=== PATIENT | female | born 1935 | race Caucasian/White ===

== ENCOUNTER 2016-11-09 11:15 | Day surgery (SDC) | payer MEDICARE ==
[~2016-11-09] VITALS: Ht 160 cm; Wt 77.3 kg
[~2016-11-09 11:15] MED LIST: COUM2.5T PO; DIGO.25 PO; DYAZ PO; METO25 PO; PRAV20 PO; SYMB160A INH; VENTAER INH; WARF2.5T40 PO
[2016-11-09] MEDS ORDERED: ceFAZolin 2 GM PREMIX 50 ML IV SCH (11:45)
[2016-11-09] MEDS ORDERED: CHLORHEXIDINE GLUCONATE 2 % 1 PACK (2 CLOTHS) TOP SCH (11:45)
[2016-11-09] MEDS ORDERED: SODIUM CHLORID 0.9% 500 ML IV SCH (11:45)
[2016-11-09] MEDS ORDERED: NO Heparin, Lovenox, Coumadin at least 12 hours prior to procedure. XX PRN (11:45)
[2016-11-09] MEDS ORDERED: LACTATED RINGER'S 1000 ML IV SCH (11:45)
[2016-11-09] MEDS ORDERED: INSULIN HUMAN REGULAR 1,000 UNITS/10 ML VIAL SQ PRN (11:45)
[2016-11-09] MEDS ORDERED: METOPROLOL TARTRATE 25 MG TAB PO PRN (11:45)
[2016-11-09] MEDS ORDERED: POVIDONE IODINE 5% (ANTISEPSIS KIT) 4 APPLICATIONS EACH NARE SCH (11:45)
[2016-11-09] MEDS ORDERED: Hold AM Insulin & AM Hypoglycemic medications in diabetic patients XX PRN (11:45)
[2016-11-09 11:51] VITALS: BP 129/73; PULSE 105; RESP 18; O2SAT 94
[2016-11-09] MEDS ORDERED: CHOL1CHW5 CHEW (12:06)
[2016-11-09] MEDS ORDERED: WARF-18 PO (12:06)
[2016-11-09] MEDS ORDERED: inhaler INH (12:06)
[2016-11-09] MEDS ORDERED: CARV3.12 PO (12:06)
[2016-11-09] MEDS ORDERED: GEMF600T PO (12:06)
[2016-11-09] MEDS ORDERED: POTA-243 PO (12:06)
[2016-11-09] MEDS ORDERED: VITA10007 PO (12:06)
[2016-11-09] MEDS ORDERED: PRAV20TA2 PO (12:06)
[2016-11-09] MEDS ORDERED: TEMA15CA PO (12:06)
[2016-11-09] MEDS ORDERED: LISI10TA3 PO (12:06)
[2016-11-09] MEDS ORDERED: FURO20TA PO (12:06)
[2016-11-09] MEDS ORDERED: VANCOMYCIN HCL 1000 MG VIAL ONE (12:07)
[2016-11-09 12:13] LABS: AUTOMATED NEUTROPHIL # 5.4 TH/MM3 (1.8-7.7); BASOPHIL % 0.5 % (0.0-2.0); EOSINOPHIL # 0.1 TH/MM3 (0-0.4); EOSINOPHIL % 1.5 % (0.0-4.0); HEMATOCRIT 43.1 % (35.0-46.0); HEMO FLAGS DIFF FINAL; LYMPH % 15.5 % (9.0-44.0); LYMPHOCYTE # 1.1 TH/MM3 (1.0-4.8); MEAN CELL VOLUME 87.1 FL (80.0-100.0); MEAN CORPUSCULAR HEMOGLOBIN 29.2 PG (27.0-34.0); MEAN CORPUSCULAR HGB CONC 33.5 % (32.0-36.0); MONO % 5.2 % (0.0-8.0); NEUT % 77.3 % (16.0-70.0); PLATELET COUNT 169 TH/MM3 (150-450); RED BLOOD COUNT 4.94 MIL/MM3 (4.00-5.30); RED CELL DISTRIBUTION WIDTH 13.4 % (11.6-17.2)
[2016-11-09 12:20] LABS: APTT (PATIENT) 38.9 SEC (24.3-30.1); INTERNATIONAL NORMALIZED RATIO 1.7 RATIO; PROTHROMBIN TIME - PATIENT 19.8 SEC (9.8-11.6)
[2016-11-09 12:31] LABS: BICARBONATE 29.6 MEQ/L (21.0-32.0); POTASSIUM 4.5 MEQ/L (3.5-5.1)
[2016-11-09] MEDS ORDERED: MIDAZOLAM HCL 2 MG/2 ML VIAL ONE (15:07)
[2016-11-09] MEDS ORDERED: RESP: ALBUTEROL 2.5 MG/3 ML NEB (SCH) ONE (15:07)
[2016-11-09] MEDS ORDERED: fentaNYL CITRATE 250 MCG/5 ML AMP ONE (15:07)
[2016-11-09] MEDS ORDERED: ISOPROTERENOL HCL 1 MG/5 ML AMP ONE (15:44)
[2016-11-09] MEDS ORDERED: VANCOMYCIN 500 MG VIAL ONE (15:50)
[2016-11-09] MEDS ORDERED: LIDOCAINE HCL 2% 50 ML VIAL ONE (15:51)
[2016-11-09] MEDS ORDERED: PROPOFOL 200 MG/20 ML AMP IV ONE (16:27)
[2016-11-09 19:00] VITALS: BP 120/69; PULSE 79; RESP 16; O2SAT 95
[2016-11-09] MEDS ORDERED: TEMAZEPAM 15 MG CAP PO PRN (21:15)
[2016-11-09] MEDS ORDERED: PRAVASTATIN SOD 20 MG TAB PO SCH (22:00)
[2016-11-09] MEDS: CARVEDILOL 3.125 MG TAB PO SCH (22:10)
[2016-11-09 23:00] VITALS: PULSE 80
[2016-11-10] VITALS (7 sets, daily range): BP systolic 124–136; BP diastolic 73–74; PULSE 62–88; RESP 16–18; TEMP 98.6; O2SAT 94–95
[2016-11-10] MEDS ORDERED: POTASSIUM CHLORIDE 10 MEQ CONTROLLED RELEASE TAB PO SCH (09:00)
[2016-11-10] MEDS ORDERED: FUROSEMIDE 20 MG TAB PO SCH (09:00)
[2016-11-10] MEDS ORDERED: GEMFIBROZIL 600 MG TAB PO SCH (09:00)
[2016-11-10] MEDS ORDERED: CHOLECALCIFEROL (VIT D3) 1000 UNIT TAB PO SCH (09:00)
[2016-11-10] MEDS ORDERED: ASCORBIC ACID 500 MG TAB PO SCH (09:00)
[2016-11-10] MEDS: CARVEDILOL 3.125 MG TAB PO SCH (09:00)
[2016-11-10] MEDS ORDERED: LISINOPRIL 10 MG TAB PO SCH (09:00)
[2016-11-10] MEDS ORDERED: CEPH-460 PO (11:16)
--- NOTE | 2016-11-10 11:25 | PD.CARD.PN ---
Subjective Subjective Remarks Feels good. Objective Medications Current Medications Medications (Trade) Dose Ordered Sig/Itzel Route Start Time Stop Time Status Last Admin Lactated Ringer's 1,000 ml @ 30 mls/hr Q24H IV 11/09/16 11:45 (NS 500 ml Inj) 500 ml @ 30 mls/hr [id number] IV 11/09/16 11:45 11/10/16 11:44 Miscellaneous Information Hold AM Insulin & ... UNSCH PRN XX 11/09/16 11:45 11/13/16 11:44 Miscellaneous Information NO Heparin, Loven... UNSCH PRN XX 11/09/16 11:45 11/13/16 11:44 (Coreg) 3.125 mg BID PO 11/09/16 22:00 11/10/16 09:00 (Lasix) 20 mg DAILY PO 11/10/16 09:00 11/10/16 09:00 (Lopid) 600 mg DAILY PO 11/10/16 09:00 11/10/16 09:00 (KCl) 10 meq DAILY PO 11/10/16 09:00 11/10/16 09:00 (Prinivil) 10 mg DAILY PO 11/10/16 09:00 11/10/16 09:00 (Pravachol) 20 mg HS PO 11/09/16 22:00 11/09/16 22:10 (Restoril) 30 mg HS PRN PO 11/09/16 21:15 11/09/16 22:10 (Vitamin C) 1,000 mg DAILY PO 11/10/16 09:00 11/10/16 09:00 (Vitamin D3) 2,000 units DAILY PO 11/10/16 09:00 11/10/16 09:00 (Coumadin) 2.5 mg SuTuWeThSa@16 PO 11/10/16 16:00 (Coumadin) 1.25 mg MoFr@16 PO 11/12/16 16:00 Vital Signs / I&O Vital Signs Date Time Temp Pulse Resp B/P Pulse Ox O2 Delivery O2 Flow Rate FiO2 11/10/16 09:03 98.6 88 18 136/74 95 11/10/16 05:00 80 11/10/16 04:00 80 11/10/16 03:00 80 11/10/16 03:00 80 16 124/73 94 1/11/17 02:00 80 11/10/16 01:00 80 11/10/16 00:00 62 11/09/16 23:00 93 Nasal Cannula 2.00 11/09/16 23:00 80 11/09/16 19:00 93 Nasal Cannula 2.00 11/09/16 19:00 79 16 120/69 95 11/09/16 19:00 79 11/09/16 11:51 105 18 129/73 94 Physical Exam GENERAL: Well-nourished, well-developed patient. SKIN: Warm and dry. LCW incision well approximated without erythema or drainage. HEAD: Normocephalic. EYES: No scleral icterus. No injection or drainage. NECK: Supple, trachea midline. No JVD or lymphadenopathy. CARDIOVASCULAR: Regular rate and rhythm without murmurs, gallops, or rubs. RESPIRATORY: Breath sounds equal bilaterally. No accessory muscle use. GASTROINTESTINAL: Abdomen soft, non-tender, nondistended. EXTREMITIES: No cyanosis, or edema. NEUROLOGICAL: Awake, alert, and oriented x 3. Non-focal. Laboratory Laboratory Tests Test 11/09/16 11/09/16 11:41 11:46 Blood Type O POSITIVE Antibody Screen NEGATIVE Blood Bank Comment White Blood Count 7.0 TH/MM3 Red Blood Count 4.94 MIL/MM3 Hemoglobin 14.4 GM/DL Hematocrit 43.1 % Mean Corpuscular Volume 87.1 FL Mean Corpuscular Hemoglobin 29.2 PG Mean Corpuscular Hemoglobin 33.5 % Concent Red Cell Distribution Width 13.4 % Platelet Count 169 TH/MM3 Mean Platelet Volume 10.8 FL Neutrophils (%) (Auto) 77.3 % Lymphocytes (%) (Auto) 15.5 % Monocytes (%) (Auto) 5.2 % Eosinophils (%) (Auto) 1.5 % Basophils (%) (Auto) 0.5 % Neutrophils # (Auto) 5.4 TH/MM3 Lymphocytes # (Auto) 1.1 TH/MM3 Monocytes # (Auto) 0.4 TH/MM3 Eosinophils # (Auto) 0.1 TH/MM3 Basophils # (Auto) 0.0 TH/MM3 CBC Comment DIFF FINAL Differential Comment Prothrombin Time 19.8 SEC Prothromb Time International 1.7 RATIO Ratio Activated Partial 38.9 SEC Thromboplast Time Sodium Level 139 MEQ/L Potassium Level 4.5 MEQ/L Chloride Level 104 MEQ/L Carbon Dioxide Level 29.6 MEQ/L Anion Gap 5 MEQ/L Blood Urea Nitrogen 16 MG/DL Creatinine 0.85 MG/DL Estimat Glomerular Filtration 64 ML/MIN Rate Random Glucose 103 MG/DL Calcium Level 10.3 MG/DL Assessment and Plan Problem List: (1) Atrial fibrillation with rapid ventricular response Assessment and Plan: Stable s/p AV node ablation and BiV pacer implant. Continue warfarin. If CXR ok can be DC'd home. FU with Dr Rosen in 2 wks (2) CHF (congestive heart failure) Assessment and Plan: Resume carvedilol and lisinopril. Stable, no SOB or edema. Assessment and Plan D/W pt., family, RN, Dr. Rosen. Problem Qualifiers (1) CHF (congestive heart failure): Martha Donohue Nov 10, 2016 11:25
--- NOTE | 2016-11-10 12:43 | RADRPT ---
EXAM DATE/TIME: 11/10/2016 12:21 [place] COMPARISON: CHEST PA & LAT, June 19, 2016, 12:11. INDICATIONS : Post permanent pacemaker insertion. MEDICAL HISTORY : Chronic atrial fibrillation and cardiomegaly. Congestive heart failure. Hypertension. Chronic obstruc tive pulmonary disease. Dyspnea, asthma and bronchitis. SURGICAL HISTORY : Inguinal hernia repair. Goitor removed. ENCOUNTER: Subsequent ACUITY: 2 days PAIN SCORE: 8/10 LOCATION: chest FINDINGS: PA and lateral views of the chest demonstrate interval placement of a dual-lead cardiac pacing device . There is stable moderate severe cardiac megaly. Stable cephalization of pulmonary vasculature consi stent with congestive heart failure and mild pulmonary edema. No evidence of pneumothorax. Osseous st ructures are unremarkable. CONCLUSION: Status post pacemaker insertion with no complicating features. Stable appearance of c ongestive heart failure and pulmonary edema. Danyell Herring MD on November 10, 2016 at 12:39 Board Certified Radiologist. This report was verified electronically.
[2016-11-10] MEDS ORDERED: WARFARIN SOD 2.5 MG TAB PO SCH (16:00)
--- NOTE | 2016-11-10 22:50 | EKG ---
Date Performed: 11/09/2016 Time Performed: 12:04:06 PTAGE: 81 years EKG: Atrial fibrillation with rapid ventricular response Left axis deviation Left bundle branch block Abnormal ECG PREVIOUS TRACING : 06/18/2016 05.03 Compared to the previous tracing, rapid ventricular respons e is new DOCTOR: Jason Parr Interpretating Date/Time 11/10/2016 22:46:12
[2016-11-12] MEDS ORDERED: WARFARIN SOD 2.5 MG TAB PO SCH (16:00)
--- NOTE | 2016-11-30 16:30 | PD.CARD ---
SINGLE CHAMBER DEFIB IMPLANT PROCEDURE DATE: Nov 09, 2016 NYHA Classification: Class III (Moderate) Prevention: Primary Single Chamber Defib Implant PROCEDURE: Single chamber defibrillator implantation and device testing. INDICATIONS: Ms. Smyth is a 81 -year-old female with hx of congestive heart failure, ejection fraction 25%, CHF III, who undergo defibrillator implantation for sudden primary prevention. The risks, the nature and the benefit of the procedure are clearly stated to her . Risks include pneumothorax, cardiac perforation, stroke and even . She understood and agreed to proceed. PROCEDURE: After written, informed consent was obtained, the patient was brought to the EP Lab where she was prepped and draped in the sterile fashion. Conscious sedation was initiated and maintained throughout the procedure by anesthesiologist. Once sedation was verified, the left infraclavicular area was anesthetized with 2% Xylocaine. Using modified Seldinger technique, the left subclavian vein was cannulated on one occasion and one guide wire was advanced. Then, using #11 blade scalpel, a 3-cm incision was made two fingerbreadths below left clavicle. This incision was then taken down to the deep fascial layer using Bovie cautery and blunt dissection. Into the inferomedial direction, a device pocket was dissected, then the wire was dissected into the pocket. A 2-0 Vicryl suture was placed around the wires to prevent bleeding. At this point, over the wire, the 8- Bel[place]ian dilator and introducer was advanced. As dilator and wire were removed, an active fixation right ventricular pacing, sensing and defibrillatory lead was advanced. After adequate pacing and sensing thresholds were obtained, the lead was secured in the pocket with #2 Ethibond suture. At that point, the pocket was copiously irrigated with antibiotic solution. The leads were connected to the generator and placed into the pocket. I decided not to proceed with NIPS. I did proceed with wound closure. The deep fascial layer was approximated with 2-0 Vicryl suture in a continuous fashion. The subcutaneous layer was approximated with 2-0 Vicryl suture in a continuous fashion. The subcuticular layer was approximated with 2-0 Vicryl suture in a continuous fashion. Dermabond adhesive was applied to the wound, followed by a sterile pressure dressing. There was no complication. The patient tolerated procedure. Blood loss minimal. 1. Implanted Hardware: The implanted defibrillator generator is a [employer], model number 011216 serial number [id number]. The right ventricular pacing, sensing and defibrillatory lead is a [employer] model number 419417, serial number [id number]. 2. Thresholds: The right ventricular pacing threshold in the bipolar mode was .8 volts at 0.5 milliseconds, lead impedance 694 ohms and R-wave cannot be measured. The right ventricular defibrillatory threshold was not measured. 3. Settings: The device set in VVIR 70 defibrillatory portion for two zones, one zone for ventricular tachycardia between 160 and 240 beats per minute. Initial therapy consists of one burst of ATP, one ramp, 81%, 10 pulse, 10 millisecond decremental, followed by 20, then 30 and all subsequent shocks at 40 joules defibrillatory shock, the second zone for ventricular fibrillation above 240 beats per minute, first therapy at 30 and all subsequent shocks at 40 joules defibrillatory shock. CONCLUSIONS: Successful defibrillator implantation. COMMENT AND RECOMMENDATIONS: The patient will be transferred to the telemetry unit, will be observed and when stable can be discharged home. Russell Rosen MD Nov 30, 2016 16:16
--- NOTE | 2016-12-07 10:38 | MP ---
cc: RADHA BRUNER HANSCY M.D. DATE OF SURGERY: 11/09/2016 PROCEDURE Biventricular pacer defibrillator insertion. INDICATION Mrs. Smyth is an 81-year-old female with a history of atrial fibrillation, heart rate very difficult to control, congestive heart failure class III, ejection fraction 25%, QRS over 160 milliseconds on baseline, who is to undergo biventricular pacer defibrillator insertion. The risks, the nature and the benefit of the procedure were clearly stated to her. The risks include pneumothorax, cardiac perforation, stroke and even . The patient understood and agreed to proceed. The patient is going to be 100% biventricular pacing. The patient had AV node ablation and is pacemaker dependent on optimal medical treatment for over three months. DETAILS OF PROCEDURE As written informed consent was obtained prior to electrophysiology study and ablation, the patient was kept on the table where she was prepped and draped in the usual sterile fashion. Conscious sedation was initiated and maintained throughout the procedure by the anesthesiologist. Once sedation was verified, the left infraclavicular area was anesthetized with 2% Xylocaine. Using modified Seldinger technique, the left subclavian vein was cannulated on two occasions and on two guidewires were advanced. Then using a #11 blade scalpel, a 3 cm incision was made two fingerbreadths below the left clavicle. Dissection was then taken down to the fascial layer using Bovie cautery and blunt dissection. Into the inferomedial direction, a device pocket was dissected then the wire was dissected into the pocket. A 2-0 Vicryl suture was placed around the wire to prevent back bleeding. At this point over the lateral wire, a 9-St Lucian dilator and introducer was advanced. As the dilator and wire were removed, an active fixation right ventricular pacing and sensing defibrillatory lead was advanced. After adequate pacing and sensing thresholds were obtained, the lead was secured in the pocket using #2 Ethibond suture. Then over the remaining wire, a 9-St Lucian dilator and introducer was advanced. As the dilator and wire were removed, a CS cannulation sheath was advanced. Through the sheath a quadripolar steerable catheter was advanced. After multiple manipulations the coronary sinus was cannulated. CS venography showed an adequate lateral branch. Using a [place] wire the lateral branch was cannulated and the lead was advanced over the wire. After adequate pacing and sensing thresholds were obtained, the peel-away introducer was removed and the cutter introducer was removed and the lead was secured into the pocket using #2 Ethibond suture. At that point the pocket was copiously irrigated using antibiotic solution. The lead was connected to the generator and placed into the pocket. I did proceed with wound closure. I decided not to proceed with device testing because of the patient's condition and I did not want to convert the patient into sinus rhythm. I did proceed with wound closure. The deep fascial layer was approximated using 2-0 Vicryl suture in a continuous fashion. The subcutaneous layer was approximated using 2-0 Vicryl suture in a continuous fashion. The subcuticular layer was approximated using 2-0 Vicryl suture in a continuous fashion. Dermabond adhesive was applied to the wound followed by a sterile pressure dressing. There was no complication. The patient tolerated the procedure. Blood loss minimal. IMPLANTED HARDWARE The implanted biventricular pacer defibrillator is a [employer] model 401587, serial number [id number]. The right ventricular pacing and sensing defibrillatory lead is a [employer] model 624541, serial number [id number]. The left ventricular pacing and sensing lead is a [employer]. THRESHOLDS The right ventricular pacing threshold in the bipolar mode was 0.8 volts at 0.4 milliseconds. Lead impedance 94 ohms. R-wave could not be measured. The patient is completely pacer dependent. The left ventricle pacing threshold in the bipolar mode was 1.5 volts at 0.5 milliseconds. Lead impedance 825 ohms. SETTINGS The device is set in a VVIR 80, upper limit 100 beats per minute. LV first by 40 milliseconds. Defibrillatory portion for two zones. One zone for ventricular tachycardia between 160 and 240 beats per minute. Initial therapy consists of one burst of ATP, one RAMP, 81%, 10 pause, 10 millisecond decremental followed by 20 then 30 and all subsequent shocks at 40 joules defibrillatory shock. The second zone is for ventricular fibrillation above 240 beats per minute. First therapy at 30 and all subsequent shocks at 40 joules defibrillatory shock. CONCLUSIONS Successful biventricular pacer defibrillator insertion, COMMENT/RECOMMENDATION The patient is going to be transferred to the telemetry unit. She will be observed and when stable can be discharged home. MD SANCOH Hand /10:00 AM /10:19 AM
--- NOTE | 2016-12-07 10:48 | MA ---
cc: RADHA BRUNER HANSCY M.D. DATE: 11/09/2016 PROCEDURE Electrophysiology study, CS cannulation, 3-D mapping, radiofrequency ablation of AV node, repeat electrophysiology study on Isuprel infusion. INDICATION Mrs. Smyth is an 81-year-old female with atrial fibrillation on multiple medications, unable to control heart rate, unable to control with medication, referred for AV node modification and biventricular pacer defibrillator insertion. She has congestive heart failure class III, ejection around 20-25%. The risks, the nature and the benefit of the procedure were clearly stated to her. The risks include pneumothorax, cardiac perforation, stroke, need for open heart surgery and even . The patient understood and agreed to proceed. DETAILS OF PROCEDURE After written informed consent was obtained, the patient was brought to the EP lab where she was prepped and draped in the usual sterile fashion. Conscious sedation was initiated and maintained throughout the procedure by the anesthesiologist. Once sedation was verified, the right inguinal area was anesthetized with 2% Xylocaine. Using modified Seldinger technique, the right femoral vein was cannulated on four occasions and four guidewires were advanced. Over the wires three 5, a 6 and an 8 O[place]i Hemaquet were advanced. Then under fluoroscopic guidance through the 5 and 6 O[place]i Hemaquets, three 5-Omani Justin curved quadripolar electrophysiology catheters were advanced and placed along the His, coronary sinus and right ventricular apex. Basic interval was measured. The patient was in atrial fibrillation. Ventricular pacing protocol was performed. There was excellent capture. Then through the 8-Omani Hemaquet, a Cordis-Lunsford F-curve 8 mm mapping and radiofrequency ablation catheter was advanced. Using the [employer] mapping system a three-dimensional configuration of the right atrium was obtained. Then the catheter was placed at the tricuspid valve annulus. When the His was mapped radiofrequency energy was delivered on multiple occasions. The patient went into junctional rhythm. Further burn was delivered. The patient had junctional rhythm around 20 beats per minute. At that point ventricular pacing was performed at 800 milliseconds cycle length. Then the patient was observed. No conduction resumed. Then Isuprel was infused at 10 mcg. No conduction resumed. At that point the procedure was complete. The RV catheter will be left in place for pacing as well as the His catheter. The patient is going to be kept on the table and a biventricular pacer defibrillator will be implanted for sudden prevention and LV, RV resynchronization therapy. No incident report. The patient tolerated the procedure. Blood loss minimal. FINDINGS 1. Electrocardiogram: At baseline the patient was in atrial fibrillation. Post procedure the patient in V pacing. 2. Basic interval: Basic cycle length was around 680 milliseconds. 3. Tachyarrhythmia: AV node was mapped and ablated. Ablation was successful. CONCLUSIONS Successful electrophysiology study, mapping and radiofrequency ablation of the AV node. COMMENT/RECOMMENDATION The patient is going to be transferred to the telemetry unit. She will be observed and when stable can be discharged home. Russell Rosen MD HS/BT /10:07 AM /10:37 AM
== END 2016-11-10 13:45 | disposition home or self-care (01) ==
LOC: HDOC 11:15 → HDIC 11:17 → HDOC 11-10 13:45
PROVIDERS: ATTEND Internal Medicine Interventional Cardiology
DX: I50.9 Heart failure, unspecified (principal); I48.2 Chronic atrial fibrillation; I34.0 Nonrheumatic mitral (valve) insufficiency; I27.2 Other secondary pulmonary hypertension; E78.5 Hyperlipidemia, unspecified; I42.9 Cardiomyopathy, unspecified; I70.0 Atherosclerosis of aorta; E04.9 Nontoxic goiter, unspecified; Z01.810 Encounter for preprocedural cardiovascular examination; Z01.818 Encounter for other preprocedural examination
CPT/HCPCS: 33225; 33249; 71020; 80048; 85025; 85610; 85730; 86850; 86900; 86901; 93005; 93613; 93620; 93623; 93650; C1730; C1732; C1769; C1882; C1895; C1900; C2630; J2250; J3010; J3370; J7613